=== PATIENT | male | born 1955 | race Caucasian/White ===

== ENCOUNTER 2019-01-25 11:15 | Outpatient (CLI) | payer MEDICARE ==
[2019-01-25 12:46] VITALS: BP 148/80
--- NOTE | 2019-01-25 12:46 | SLEEP CARE CONSULTATION ---
Information from patient questionnaire entered by Maria Fernanda Wilson. I have reviewed and concur with the information entered by Maria Fernanda Wilson. This document represents the service I personally performed and the decisions made by me, Vicky Mejia MD, [facility]. History of Present Illness Reason for Visit: New patient, Previously diagnosed sleep apnea (AHI 32.6), sleep apnea on CPAP therapy Chief Complaint: reports: Unrefreshed sleep, Snoring, Fatigue, Frequent awakenings at night Duration of Symptoms: since 2009 Usual bedtime: 1186-0996 Time it takes to fall asleep: minutes Snores at night: Yes Observed to quit breathing while asleep: No Sleeps alone due to snoring: No Number of times waking at night: 1-2 Reasons for waking at night: reports: Other (cats) Toss, Turn, or Twitch while sleeping: No Recalls having dreams: No (not often) Usually gets out of bed at: [id number] Feels refreshed in the morning: No Morning headache: No Sleepy or fatigued during the day: Yes Ever fallen asleep while driving: No Takes day naps: Yes Dreams during day naps: No Prior sleep studies: Yes Year and Where: 2009 [facility] Additional HPI information: I had the pleasure of seeing Mr. Pacheco today regarding obstructive sleep apnea- hypopnea. As you know, he is a 63 year old gentleman who was diagnosed with the severe obstructive sleep apnea-hypopnea in 2010 at [facility]. The AHI was 32.6. He was prescribed a CPAP device set at 5 12 cmH2O. His ResMed S9 Escape is still his original machine. He uses every night and all night. The compliance data show usage in 180 out of the past 180 nights, averaging 7.6 hours a night. The residual AHI is 2.7 and average air leak value is not available. He wears the ResMed AirFit P-10 nasal pillows. [facility] gets [facility] supplies [facility] He finds the treatment very beneficial. 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 Patient is and lives in [place]. Have you smoked in the past 12 months: Yes Cigarettes per day (20/pack): 20 Years of smokin Quit date: 2005 Smoking Pack Years: 30.0 Alcohol use: Yes Alcohol amount and frequency: 1 daily Caffeine use: No Allergies and Home Medications Drug allergies reviewed: Yes Home medication list reviewed: Yes Review of Systems Cardiovascular: reports: high blood pressure Respiratory: reports: wheeze Gastrointestinal: reports: heartburn (sometimes) Urinary: reports: frequency (on diuretic medication, otherwise normal) Neurological: reports: speech dysfunction, gait or balance problems (due to stroke) Psychiatric: denies: Attention Deficit Hyperactivity, anxiety, depression, mood disorder, claustrophobia, other Ear/Nose/Throat: reports: wisdom teeth removed Endocrine: reports: sluggishness, increased urination Musculoskeletal: reports: neck pain, mobility problems (due to stroke) Immunologic: denies: sneezing, rash, itching, allergies to food or environment, other Physical Exam Vital signs obtained and entered by: Dr. Mejia Blood Pressure: 148/80 Heart Rate: 86 O2 Saturation: 96 Height: 5 ft 8 in Neck circumference: 20.5 Mood/affect: normal HEENT: No craniofacial malformation Nostrils: patent to airflow Turbinates: normal Septum: midline Mouth and throat: narrow oropharynx Soft palate: long Hard palate: normal Uvula: normal Uvula visualization: 25% Mallampati Class III Tongue: normal in size Tonsils: absent bilaterally Chin and jaw: normal size and position Neck: normal w/o lymphadenopathy or thyromegaly Heart: regular rate and rhythm, murmur Lungs: clear bilaterally Abdomen: soft, non-tender Extremities: no edema or clubbing Neurologic: intact, no focal deficits, other: (Left-sided weakness) Impression and Plan IMPRESSION: 1. Obstructive Sleep Apnea-Hypopnea Syndrome, severe, as previously diagnosed. The patient has had good treatment compliance. The current pressure setting appears effective and comfortable. The patient experiences improvement on the treatment. Narrow oropharynx and obesity are common predisposing factors for obstructive sleep apnea-hypopnea syndrome. Pathophysiology of sleep-disordered breathing was discussed. Because the CPAP is now older than the useful life of 5 years, I will order the patient a new one and make it an autoCPAP set between 5 and 10 cmH2O. He should try newer masks, such as, RespirBackOpss DreamWear nasal cushion mask and ResMed N30i mask. Plan: 1. Prescription made for an autoCPAP, heated humidifier, and related supplies. 2. Return for follow up after one month on the new machine. 3. Try to lose weight I spent 100% of this 20 minute visit face to face with the patient with greater than 50% of this was spent time counseling the patient and coordination of care.
== END 2019-01-25 11:16 | disposition home or self-care (01) ==
LOC: SC 11:15
PROVIDERS: ATTEND Internal Medicine Pulmonary Disease
DX: G47.33 Obstructive sleep apnea (adult) (pediatric) (principal)
CPT/HCPCS: 99203; G0463; 99212

== ENCOUNTER 2019-05-04 13:07 | Outpatient (CLI) | payer MEDICARE ==
--- NOTE | 2019-05-04 14:26 | SLEEP CARE CONSULTATION ---
Information from patient questionnaire entered by Mayda Stewart. I have reviewed and concur with the information entered by Mayda Stewart. This document represents the service I personally performed and the decisions made by me, Malgorzata Camara, RN, MSN, [employer]. History of Present Illness Previous diagnosis: Severe, Obstructive Sleep Apnea-Hypopnea Syndrome AHI: 32.6 Reason for follow up: first compliance after device update Accompanied by: Spouse Equipment type: CPAP Equipment obtained from: [employer] Mask style: Nasal (Dreamwear) Mask brand: Resmed (N30i) Backup mask available: Yes HPI additional information: Patient and spouse came in frustrated. The new CPAP pressure is too much and he called in February and I reduced it to 4-8cmH20. This was fine as long as it did not raise higher than 6 cmH20. I had left a message to call me if the pressure did not work but he did not recall that. His spouse noted him struggling with the new CPAP pressure and had him resume his old CPAP which the pressure is more comfortable and he was able to sleep. The Res Med was used from 03/23 to 05/03 and is set at [id number] and is shows his pressure at median of 7.8 and 95th percentile of 9.8cmH20. CPAP Compliance Data - Data Reviewed with Patient Average duration of nightly device use: 6.55 Compliance rate %: 50 (first 30 days)(switched to old machine - 100 for 42 days) Current pressure setting (cmH2O): 4-8 Humidity settin Heated hose settin Average residual AHI: 2.8 Average large leak: 0 Subjective Patient concerns: reports: other (too much air). denies: aerophagia, mask discomfort (mask cushions sent for replacement are medium and too small. The SW cushion fits just right. ), air blowing in eyes, mask leak noise, condensation in mask/hose, nasal congestion, dry mouth, nose, throat, epistaxis Observed to snore while using device: No Current pressure setting perceived as: too high (on new CPAP too high and unable to tolerate, his spouse would notice loud oral venting) On therapy, patient: reports: sleeping better (with old CPAP), awakening more refreshed, being more awake and alert during the day, more rested overall. denies: drowsiness while driving Initial [place] Sleepiness Scale score: 7 Current [place] Sleepiness Scale score: 6 Allergies and Home Medications Known drug allergies: No Home medication list reviewed: Yes (please see list ) Allergy and home medication list: amlodipine 5mg bid atovastatin 40mg bid mable aspirin 325mg daily carvedilol 12.5mg 1.5 tablets bid lisinopril 40mg bid chlorthalidone 25mg 1.5 tablets daily clobetasol 0.05% cream topically daily gabapentin 300mg glipizide 10mg daily Lantus solostar u-100 insulin 80units HS sq metformin 100mg bid nitrogylcerin o.4mg SL prn spironolactone 25mg daily terazosin 5mg bid vitamin C 100mg daily vitamin D 1000 units daily zinc gluconate 50mg daily Review of Systems Review of systems same as previous: No (elevated calcium - studies ordered. ) Physical Exam Blood Pressure: 140/70 Cuff size: long Heart Rate: 88 O2 Saturation: 97 Height: 5 ft 8 in Weight: 237 lb 12.8 oz Body Mass Index: 36.1 BMI Classification: Obesity Class 2 Impression and Plan 1. Obstructive Sleep Apnea-Hypopnea Syndrome, severe, with fair treatment compliance and good apnea control on new CPAP due to pressure intolerance. The reduced pressure ordered in February was still uncomfortable. Thus he restarted his old CPAP until he could be seen not realizing he could call again for pressure reduction. On CPAP therapy, the patient has better sleep quality and is more rested overall. Thus I changed his auto CPAP pressure to 4-6cmH20 and emphasized for him to call me if the new pressure is still uncomfortable. He is to restart the new CPAP and follow up appropriately to meet compliance goals. For his mask concerns I wrote an order for a mask refitting so the proper size could be ordered from the [facility] and the others returned. Patient's apnea severity and rationale for treatment to reduce apnea, improve sleep quality and reduce cardiovascular and cerebrovascular events was reviewed. I also reviewed the benefit of consistent device use of CPAP for hypertension, cardiac disease, cerebrovascular disease, diabetes. * * Change CPAP pressure to 4-6 cmH2O * Mask refitting * Notify me if snoring with mask or feeling that the pressure is too much or too little * Attempt to lose weight * Call this office if any problems using CPAP * Return for follow up in 1 -2 months , or sooner if concerns arise Time Spent with Patient (minutes): 35 I spent 100% of this visit face to face with the patient with greater than 50% of this was spent time counseling the patient and coordination of care.
[2019-05-04 14:27] VITALS: BP 140/70
== END 2019-05-04 13:08 | disposition home or self-care (01) ==
LOC: SC 13:07
PROVIDERS: ATTEND Nurse Practitioner Family
DX: G47.33 Obstructive sleep apnea (adult) (pediatric) (principal); E66.9 Obesity, unspecified; Z68.36 Body mass index [BMI] 36.0-36.9, adult
CPT/HCPCS: 99214; G0463; 99212

== ENCOUNTER 2020-06-11 11:36 | Outpatient (CLI) | payer MEDICARE ==
--- NOTE | 2020-06-11 12:12 | SLEEP CARE CONSULTATION ---
Information from patient questionnaire entered by Mayda Stewart. I have reviewed and concur with the information entered by Mayda Stewart. This document represents the service I personally performed and the decisions made by me, Vicky Mejia MD, [facility]. History of Present Illness Service Date and Time: 06/11/2020 1136 Previous diagnosis: Severe, Obstructive Sleep Apnea-Hypopnea Syndrome AHI: 32.6 (in 2009) Reason for follow up: annual (last seen 05/2019) Equipment type: CPAP Equipment obtained from: [employer] Mask style: Nasal Mask brand: Respironics (Dreamwear) Prior sleep studies: Yes Year and Where: 2009 [facility] Type of Sleep Study: Polysomnography HPI additional information: HPI: Mr. Pacheco was diagnosed to have severe obstructive sleep apnea-hypopnea syndrome and returns today for follow up of CPAP therapy. The patient purchased the device from [employer] and was fitted with a nasal mask. He uses the device nightly and all through the night. The compliance report shows that he uses the device 179 nights out of the past 180 nights, averaging 8.3 hours a night. He complains of no particular problem with the device such as soreness on the face, dry nose, epistaxis, nasal congestion or headache. He thinks that the pressure of 4 - 6 cmH2O is comfortable. On the CPAP therapy he notices improvement in his sleep quality, and that he wakes up feeling fresher in the morning and more awake/alert during the day. His notices some snores at the end of the night. [place] Sleepiness Scale score is 2. The average residual AHI is 3.9; and average time in large leak per day is 0 minutes a night. The 90th percentile pressure is 6 cmH2O. CPAP Compliance Data - Data Reviewed with Patient Average duration of nightly device use: 8 hr 2 min Compliance rate %: 98.3 (180 days) Current pressure setting (cmH2O): 4-6 Humidity settin Heated hose settin Average residual AHI: 3.9 Average large leak: 0 Subjective Patient concerns: reports: other (snore while using device) Initial [place]cer Sleepiness Scale score: 7 (in 2019) Current [place]cer Sleepiness Scale score: 2 Allergies and Home Medications Drug allergies reviewed: Yes Home medication list reviewed: Yes Review of Systems Review of systems same as previous: Yes Physical Exam Height: 5 ft 8 in Weight: 221 lb Body Mass Index: 33.5 BMI Classification: Obese Impression and Plan IMPRESSION: 1. Obstructive Sleep Apnea-Hypopnea Syndrome, severe (AHI = 32.6 in 2010 at [facility]), with the patient continuing to do well on nasal CPAP t herapy. He has excellent compliance and significant clinical benefits. The current pressure appears effective and comfortable. Overall, he is very satisfied with treatment and plans to continue with it long-term. Because he still snores, I will raise the pressure range a little. PLAN: 1. AutoCPAP set to 4 - 8 cm H2O. 2. Try to lose weight 3. Return in one year for follow up or earlier if there is any problem with the treatment. Counseling Topics: Weight control Visit Type: In Office Other Participants: Spouse/Significant Other Time Spent with Patient (minutes): 15 Provider Statement: I spent 100% of the Face to Face Visit with the patient with greater than 50% spent counseling the patient and coordination of care.
== END 2020-06-11 11:37 | disposition home or self-care (01) ==
LOC: SC 11:36
PROVIDERS: ATTEND Internal Medicine Pulmonary Disease
DX: G47.33 Obstructive sleep apnea (adult) (pediatric) (principal); E66.9 Obesity, unspecified; Z68.33 Body mass index [BMI] 33.0-33.9, adult
CPT/HCPCS: 99212; G0463